=== PATIENT | female | born 1995 | race Caucasian/White ===

== ENCOUNTER 2021-06-15 10:08 | Emergency (ER) | payer MEDICAID, OTHER ==
[~2021-06-15] VITALS: Ht 167.6 cm; Wt 63.0 kg
[2021-06-15 10:52] VITALS: BP 123/80
[2021-06-15] MEDS ORDERED: SULF-261 PO (12:20)
== END 2021-06-15 13:21 | disposition home or self-care (01) ==
LOC: EMS 10:10
DX: L03.116 Cellulitis of left lower limb (principal)
CPT/HCPCS: 99283; Z7502